=== PATIENT | male | born 1945 | race Caucasian/White ===

== ENCOUNTER → 2016-09-18 | Outpatient (CLI) | payer OTHER ==
[~2016-09-18] MED LIST: BUPROPION HCL150 M2 PO; CYMBALTA60 MG PO; DULCOLAX5 MG PO; FISH OIL300 MG PO; GLUCOTROL XL2.5 MG PO; HYDROCODON-ACE1 EAC8 PO; LANSOPRAZOLE30 MG PO; LIPITOR80 MG PO; LYRICA300 MG PO; MIRALAX17 GM PO; OMEPRAZOLE40 M1 PO; REFRESH TEARS15 ML BOTH EYES; REQUIP1 MG PO; SENIOR TABS1 EACH PO; STOOL SOFTENER100 MG PO
== END | disposition home or self-care (01) ==
LOC: RES 10:50
DX: C80.1 Malignant (primary) neoplasm, unspecified (principal)
CPT/HCPCS: 94060; 94726; 94729